=== PATIENT | female | born 1970 | race Two or more races ===

== ENCOUNTER 2021-12-20 12:30 | Inpatient (IN) | payer OTHER ==
[~2021-12-20] VITALS: Ht 162.6 cm; Wt 83.0 kg
[2021-12-20] MEDS ORDERED: MULTIPLE VITAM1 EAC2 PO (14:30)
[2021-12-20] MEDS ORDERED: TOPROL XL25 M1 PO (14:30)
== END 2021-12-22 16:34 | disposition home or self-care (01) | DRG 743 ==
LOC: O/R 12-21 08:30 → SURH 12-21 12:30 → OB/GYN 12-21 15:27
PROVIDERS: ADMIT Specialist; ATTEND Specialist
PROC: 0UT54ZZ Resection of Right Fallopian Tube, Percutaneous Endoscopic Approach (ICD-10-PCS; 2021-12-21)
PROC: 0UT04ZZ Resection of Right Ovary, Percutaneous Endoscopic Approach (ICD-10-PCS; 2021-12-21)
PROC: 0DNW4ZZ Release Peritoneum, Percutaneous Endoscopic Approach (ICD-10-PCS; 2021-12-21)
PROC: 0TN74ZZ Release Left Ureter, Percutaneous Endoscopic Approach (ICD-10-PCS; 2021-12-21)
PROC: 3E1M38Z Irrigation of Peritoneal Cavity using Irrigating Substance, Percutaneous Approach (ICD-10-PCS; 2021-12-21)
PROC: 0UT94ZZ Resection of Uterus, Percutaneous Endoscopic Approach (ICD-10-PCS; principal; 2021-12-21 14:30)
DX: D25.1 Intramural leiomyoma of uterus (principal); N83.291 Other ovarian cyst, right side; N80.0 Endometriosis of uterus; Z20.822 Contact with and (suspected) exposure to COVID-19